=== PATIENT | male | born 1950 | race Caucasian/White ===

== ENCOUNTER 2018-02-16 12:34 | Outpatient (CLI) | payer MEDICARE ==
--- NOTE | 2018-02-16 12:51 | RAD ---
TWO VIEWS CHEST: Comparison: None. History: Pre-operative chest radiograph. FINDINGS: Two views of the chest show normal sized cardiomediastinal silhouette. There is no evidence of consol idation, mass, or pleural effusion. Degenerative changes are seen in the spine. IMPRESSION: No evidence of acute cardiopulmonary disease. POS: [facility]
== END 2018-02-16 12:35 | disposition home or self-care (01) ==
LOC: NAV RAD 12:34
PROVIDERS: ATTEND Family Medicine
DX: Z01.818 Encounter for other preprocedural examination (principal)
CPT/HCPCS: 71046; 93005

== ENCOUNTER 2023-02-07 11:17 | Outpatient (CLI) | payer MEDICARE | END 2023-02-07 11:18 | disposition home or self-care (01) | LOC: NAV RAD 11:17 | PROVIDERS: ATTEND Family Medicine | DX: R05.9 Cough, unspecified (principal) | CPT/HCPCS: 71046 ==